=== PATIENT | male | born 1960 | race Caucasian/White ===

== ENCOUNTER 2017-08-28 09:47 | Outpatient (CLI) | payer OTHER | END 2017-08-28 09:48 | disposition home or self-care (01) | LOC: BICRAD 09:47 | PROVIDERS: ATTEND Internal Medicine | DX: Z02.71 Encounter for disability determination (principal) | CPT/HCPCS: 71046 ==

== ENCOUNTER 2021-01-14 14:26 | Outpatient (CLI) | payer MEDICARE | END 2021-01-14 14:27 | disposition home or self-care (01) | LOC: ULT 14:26 | PROVIDERS: ATTEND Family Medicine | DX: M79.605 Pain in left leg (principal) ==

== ENCOUNTER 2022-01-20 11:20 | Outpatient (CLI) | payer MEDICARE ==
[2022-01-20 12:10] LABS: #Basophils 0.1 10x3/uL (0.0-0.2); #Eosinphils 0.2 10x3/uL (0.0-0.5); #Monocytes 0.7 10x3/uL (0.0-1.1); #Neutrophils 2.9 10x3/uL (1.5-8.4); %Basophils 0.9 % (0.0-2.0); %Eosinophils 4.2 % (0.0-6.0); %Lymphocytes 26.9 % (18.0-47.0); %Monocytes 12.7 % (0.0-10.0); %Neutrophils 54.9 % (40.0-75.0); Hemoglobin 14.4 g/dL (13.5-17.5); Mean Corpuscular HGB CONC 36.5 g/dL (32.0-36.0); Mean Corpuscular Hemoglobin 31.9 pg (27.0-33.0); Mean Corpuscular Volume 87.4 fl (81.2-95.1); Mean Platelet Volume 10.7 fl (7.4-10.4); Platelet Count 213 10x3/uL (150-450); RBC Distribution Width 11.9 % (11.5-14.5); Red Blood Cell (RBC) Count 4.51 10x6/uL (4.32-5.72); White Blood Cell (WBC) Count 5.3 10x3/uL (3.5-10.5)
[2022-01-20 13:03] LABS: ALT (SGPT) 25 U/L (8-55); AST (SGOT) 23 U/L (5-34); Albumin 4.4 g/dL (3.5-5.0); Alkaline Phosphatase 44 U/L (40-110); Anion Gap 14 mmol/L (10-20); BUN (Urea Nitrogen) 11 mg/dL (8.4-25.7); Bilirubin, Direct 0.2 mg/dL (0.1-0.3); Bilirubin, Total 0.7 mg/dL (0.2-1.2); Calc. Creatinine Clearance 0 mL/min (70-130); Calcium 8.9 mg/dL (7.8-10.44); Carbon Dioxide 25 mmol/L (22-29); Chloride 101 mmol/L (98-107); Estimated GFR 82; Globulin 2.4 g/dL (2.4-3.5); Glucose 106 mg/dL (70-105); Potassium 4.5 mmol/L (3.5-5.1); Protein, Total 6.8 g/dL (6.0-8.3); Sodium 135 mmol/L (136-145)
== END 2022-01-20 11:21 | disposition home or self-care (01) ==
LOC: LABBT 11:20
PROVIDERS: ATTEND Surgery
DX: Z01.818 Encounter for other preprocedural examination (principal); K80.20 Calculus of gallbladder without cholecystitis without obstruction
CPT/HCPCS: 80053; 80076; 85025; 93005; 93010

== ENCOUNTER 2022-01-21 06:58 | Day surgery (SDC) | payer MEDICARE ==
[2022-01-20 10:48] VITALS: BMI 34.2
[2022-01-21] MEDS ORDERED: PHENYLEPHRINE-NS 100 MCG/ML 10 ML SYRINGE ONE (07:31)
[2022-01-21] MEDS ORDERED: Esmolol 100 MG/10 ML VIAL ONE ×2 (07:31→07:53)
[2022-01-21] MEDS ORDERED: Ondansetron PF 4 MG/2 ML Vial ONE (07:31)
[2022-01-21] MEDS ORDERED: Rocuronium Bromide 10 MG/ML (10ML VIAL) ONE (07:31)
[2022-01-21] MEDS ORDERED: PROPOFOL 200 MG/20 ML VIAL ONE ×2 (07:31)
[2022-01-21] MEDS ORDERED: Ketorolac Tromethamine 30 MG/ML VIAL ONE (07:31)
[2022-01-21] MEDS ORDERED: Dexamethasone 20 MG/5 ML VIAL ONE (07:31)
[2022-01-21] MEDS ORDERED: Glycopyrrolate 0.2 MG/ML 5 ML SYRINGE ONE (07:31)
[2022-01-21] MEDS ORDERED: cefOXitin 2 GM VIAL ONE (07:52)
[2022-01-21] MEDS ORDERED: Sodium Chloride 0.9% 100 ML ONE (07:52)
[2022-01-21] MEDS ORDERED: fentaNYL Citrate/PF 100 MCG/2 ML SYRINGE ONE (07:53)
[2022-01-21] MEDS ORDERED: Norepinephrine 4 MG/4 ML VIAL ONE (07:53)
== END 2022-01-21 10:54 | disposition home or self-care (01) ==
LOC: SDC 06:58
PROVIDERS: ATTEND Surgery
PROC: 0FT44ZZ Resection of Gallbladder, Percutaneous Endoscopic Approach (ICD-10-PCS; principal; 2022-01-21)
DX: K80.10 Calculus of gallbladder with chronic cholecystitis without obstruction (principal); E89.0 Postprocedural hypothyroidism; I10 Essential (primary) hypertension; I71.21 Aneurysm of the ascending aorta, without rupture; E78.5 Hyperlipidemia, unspecified; F17.290 Nicotine dependence, other tobacco product, uncomplicated; Z79.82 Long term (current) use of aspirin; Z79.890 Hormone replacement therapy; Z79.899 Other long term (current) drug therapy; Z88.5 Allergy status to narcotic agent; Z95.0 Presence of cardiac pacemaker
CPT/HCPCS: 47562; C1713; 88304; C1889; J0694; J1100; J1885; J2405; J2704; J3490